=== PATIENT | male | born 1990 | race Hispanic/Latino ===

== ENCOUNTER 2023-06-05 08:12 | Day surgery (SDC) | payer BC ==
[2023-06-01 14:54] LABS: BASOPHILS # (AUTO) 0.03 K/uL (0.00-0.20); BASOPHILS % (AUTO) 0.4 % (0.0-5.0); EOSINOPHILS # (AUTO) 0.22 K/uL (0.00-0.70); EOSINOPHILS % (AUTO) 2.8 % (0.0-8.0); HEMATOCRIT 49.2 % (42-54); IMMATURE GRANULOCYTE ABSOLUTE 0.02 K/uL (0-1); LYMPHOCYTES # (AUTO) 2.4 K/uL (1.0-4.8); LYMPHOCYTES % (AUTO) 30.7 % (21.0-51.0); MEAN CORPUSCULAR HEMOGLOBIN 31.7 pg (27.0-33.0); MEAN CORPUSCULAR HGB CONC 33.9 g/dL (32.0-36.0); MEAN CORPUSCULAR VOLUME 93.4 fL (79-99); MONOCYTES # (AUTO) 0.6 K/uL (0.1-1.0); MONOCYTES % (AUTO) 7.1 % (3.0-13.0); NEUTROPHILS # (AUTO) 4.5 K/uL (1.8-7.7); NEUTROPHILS % (AUTO) 58.7 % (40.0-77.0); PLATELET COUNT (AUTO) 229 K/uL (130-400); RED BLOOD CELL COUNT(AUTO) 5.27 MIL/uL (4.50-6.20); RED CELL DISTRIBUTION WIDTH 11.9 % (11.0-15.5); WHITE BLOOD COUNT (AUTO) 7.7 K/uL (4.8-10.8)
[2023-06-01 15:03] LABS: CREATININE 0.8 mg/dL (0.5-1.5); POTASSIUM 4.4 mmol/L (3.5-5.1)
[2023-06-01 15:06] LABS: INR 0.97 (0.85-1.15); PROTHROMBIN TIME 11.3 SEC (9.6-11.6)
[2023-06-01 15:07] LABS: PARTIAL THROMBOPLASTIN TIME 29.1 SEC (26.3-35.5)
[2023-06-01 15:18] VITALS: BP 140/77; PULSE 68; RESP 18
[~2023-06-05] VITALS: Ht 175.3 cm; Wt 78.2 kg
[2023-06-05] VITALS (17 sets, daily range): BP systolic 111–129; BP diastolic 43–80; PULSE 60–84; RESP 13–22
[2023-06-05] MEDS ORDERED: LACTATED RINGERS 1000ML 1,000 ML IV ONE (08:16)
[2023-06-05] MEDS ORDERED: CEFAZOLIN SODIUM 2 GM VIAL ONE (08:16)
[2023-06-05] MEDS ORDERED: IOHEXOL-350 50ML VIAL IV ONE (08:31)
[2023-06-05] MEDS ORDERED: EPINEPHRINE PF 1MG (1:1,000) 1 MG/ML AMP ONE (08:32)
[2023-06-05] MEDS ORDERED: BUPIVACAINE/PF 0.5% 30ML VIAL ONE (08:32)
[2023-06-05] MEDS ORDERED: ONDANSETRON 4MG INJ ONE (08:49)
[2023-06-05] MEDS ORDERED: MIDAZOLAM HCL 1 MG/ML 2ML VIAL ONE (08:49)
[2023-06-05] MEDS ORDERED: ROCURONIUM 10MG/1ML SYR 10 MG/ML ML ONE (08:50)
[2023-06-05] MEDS ORDERED: FENTANYL CITRATE PF 50 MCG/1 ML 2ML VIAL ONE (08:50)
[2023-06-05] MEDS ORDERED: PROPOFOL 10 MG/ML 20ML VIAL IV ONE (08:50)
[2023-06-05] MEDS ORDERED: MEPERIDINE-PF 25 MG/ML SYG ONE ×2 (09:13→10:42)
[2023-06-05] MEDS ORDERED: EPINEPHRINE PF 1MG (1:1,000) 1 MG/ML AMP INJ ONE (09:19)
[2023-06-05] MEDS ORDERED: DEXAMETHASONE SOD PHOSPHATE 10MG/ML 1ML VIAL ONE (09:31)
[2023-06-05] MEDS ORDERED: PHENYLEPHRINE HCL 10 MG/ML 1ML VIAL IV ONE (09:32)
[2023-06-05] MEDS ORDERED: GLYCOPYRROLATE 1 MG/5 ML SYRINGE ONE (09:58)
[2023-06-05] MEDS ORDERED: NEOSTIGMINE 5MG/5ML SYR IV ONE (09:58)
[2023-06-05] MEDS ORDERED: TRAM50TA4 PO (10:08)
[2023-06-05] MEDS ORDERED: DOCU-116 PO (10:08)
[2023-06-05] MEDS ORDERED: GABA-529 PO (10:08)
[2023-06-05] MEDS ORDERED: METH-662 PO (10:08)
== END 2023-06-05 12:15 | disposition home or self-care (01) ==
LOC: DAH 08:12
PROVIDERS: ATTEND Surgery
DX: K80.10 Calculus of gallbladder with chronic cholecystitis without obstruction (principal); K82.8 Other specified diseases of gallbladder; Z79.01 Long term (current) use of anticoagulants
CPT/HCPCS: 80048; 85025; 85610; 85730; 36415; 47563; 88304; 74300; A4663; J7030; C1758; J7120; J3010; J3490 ×2; J1100; J2710; J0171 ×2; J2250; J2704; J2405; J2175 ×2; J2371; Q9967; J0690; A4649 ×2; A4930 ×2; A4215; A4223; A4222; A4221; A4600